=== PATIENT | female | born 1990 | race Caucasian/White ===

== ENCOUNTER 2017-01-14 03:44 | Inpatient (IN) | payer MEDICAID ==
[~2017-01-14] VITALS: Ht 147.3 cm; Wt 62.8 kg
[2017-01-14 04:05] VITALS: Ht 147.3 cm; Wt 62.8 kg
[2017-01-14 04:06] VITALS: BP 109/62; PULSE 79; RESP 18
[2017-01-14] MEDS ORDERED: PREN1TAB79 PO (04:08)
--- NOTE | 2017-01-14 05:45 | PN ---
Date/Time of Note Date/Time of Note DATE: 01/14/17 TIME: 05:35 OB Subjective Subjective Subjective 26 Year-old with SIUP at 37 4/7 presents with a chief complaint of UCS. She has been receiving her care with Dr. Will. She states good movement. She denies nausea, vomiting, shortness of breath, chest pain, and abdominal pain between contractions, headache, visual changes, vaginal bleeding or LOF. OB Objective Objective Objective General: Patient appears well, alert and oriented, NAD, appropriate mood and affect Heart: Regular rhythm and rate. No murmur. Normal S1, S2 Lung: clear to auscultation (bilateral) ABD: gravid, soft, non-tender. Back: No CVA tenderness (B/L) LE: No clubbing, cyanosis, edema, thigh or calf tenderness bilaterally FHT: 140 bpm , moderate variability with acceleration, no deceleration-category I Contractions: Q 3-5 min. SVE: 3/50/-3/ceph/intact membrane EFW: 7 1/2 lbs Pelvis adequate OB Assessment/Plan Other plan: 26 Year-old with SIUP at 37 4/7 in labor. - FHR: No sign of metabolic acidosis- Category I - Continious EFM, toco - Reactive NST - Repeat exam in 2hrs if there is cx changes will be admitted, if no cx changes and pt feels comfortable may discharge home with f/u with primary OB - Analgesia options with R/B/A discussed in detail with patient - Epidural per patient request - Please see the orders Admission, procedures, expectations, risks and possible complications have been discussed in detail with the patient. Risk of vaginal delivery including but not limited to bleeding, infection, cervical laceration, placental retention, injury to fetus, blood transfusion, blood transfusion related infection, risk of anesthesia, adhesion, cervical laceration, episiotomy/laceration, possible delivery with risk of bleeding, infection, injury to other organs ( bowel, bladder, ureter, vessels, nerves), injury to fetus, blood transfusion, blood transfusion related infection, risk of anesthesia, scar and hernia formation, needs for future , removal of uterus or any other indicated surgery discussed with the patient. She expressed understanding and repeats the risks. All of her questions were answered; all appropriate consents will be signed. EVANGELINA DONOVAN Jan 14, 2017 05:44
[2017-01-14] MEDS ORDERED: LACTATED RINGER'S 1,000 ML IV SCH (06:34)
[2017-01-14] MEDS ORDERED: OXYTOCIN 30 UNITS/LR 500 ML IV PRN (07:00)
[2017-01-14] MEDS ORDERED: MISOPROSTOL 200 MCG TAB PR PRN (07:00)
[2017-01-14] MEDS ORDERED: OXYTOCIN 30 UNITS/LR 500 ML IV SCH ×2 (07:00)
[2017-01-14] MEDS ORDERED: BUTORPHANOL 2 MG INJ IV PRN (07:00)
[2017-01-14] MEDS ORDERED: CARBOPROST 250 MCG INJ IM PRN (07:00)
[2017-01-14] MEDS ORDERED: AMPICILLIN 2 GM/NS (PMX) 100 ML IV ONE (07:00)
[2017-01-14] MEDS ORDERED: METHYLERGONOVINE 0.2 MG INJ IM PRN (07:00)
[2017-01-14] MEDS ORDERED: LACTATED RINGER'S 1,000 ML IV PRN (07:00)
[2017-01-14] MEDS ORDERED: LIDOCAINE 1% (MPF) 30 ML INJ INJ PRN (07:00)
[2017-01-14 08:14] LABS: BASOPHILS % 0.2 % (0.0-2.0); EOSINOPHILS # 0.1 10^3/ul (0.0-0.5); EOSINOPHILS % 0.6 % (0.0-7.0); HEMATOCRIT 38.8 % (37.0-47.0); HEMOGLOBIN 13.3 g/dl (12.0-16.0); LYMPHOCYTES # 1.7 10^3/ul (0.8-2.9); LYMPHOCYTES % 11.8 % (15.0-51.0); MEAN CORPUSCULAR HEMOGLOBIN 32.2 pg (29.0-33.0); MEAN CORPUSCULAR HGB CONC 34.4 g/dl (32.0-37.0); MEAN CORPUSCULAR VOLUME 93.5 fl (82.0-101.0); MEAN PLATELET VOLUME 7.2 fl (7.4-10.4); MONOCYTE # 0.7 10^3/ul (0.3-0.9); MONOCYTES % 5.2 % (0.0-11.0); NEUTROPHIL # 11.6 10^3/ul (1.6-7.5); NEUTROPHILS % 82.2 % (39.0-77.0); PLATELET COUNT 256 10^3/UL (140-440); RED BLOOD COUNT 4.15 10^6/ul (4.20-5.40); RED CELL DISTRIBUTION WIDTH 13.7 % (11.5-14.5); UNCORRECTED WBC 14.1 10^3/ul (4.8-10.8); WHITE BLOOD COUNT 14.1 10^3/ul (4.8-10.8)
[2017-01-14 08:20] LABS: CONDITION 1
[2017-01-14 08:35] LABS: INR 0.98
[2017-01-14 08:36] LABS: PARTIAL THROMBOPLASTIN TIME 26.8 Sec (25.0-35.0)
[2017-01-14] MEDS ORDERED: AMPICILLIN 1 GM/NS (PMX) 50 ML IV SCH (11:00)
--- NOTE | 2017-01-14 11:04 | HP ---
Date/Time of Note Date/Time of Note DATE: 01/14/17 TIME: 11:01 OB - History Hx of Present Free Text/Dictation history physical ,refer to DR TATE,S PROGRESS NOTE Past Family/Social History * Past Medical, Surgical, Family and Obstetric Histories reviewed from chart. OB Admission Exam Vital Signs Vital Signs Vital Signs Date Time Temp Pulse Resp B/P Pulse Ox O2 Delivery O2 Flow Rate FiO2 01/14/17 04:06 98.5 79 18 109/62 Room Air Last 72 hours Lab Results CBC & BMP 01/14/17 08:01 PAT REBOLLAR MD Jan 14, 2017 11:04
--- NOTE | 2017-01-14 11:07 | LDN ---
Date/Time of Note Date/Time of Note DATE: 01/14/17 TIME: 11:04 Delivery Summary Normal spontaneous vaginal delivery of a live baby boy from EMELIA position shoulders delivered without difficulty rest of the baby's body followed cord clamped after self pulsation placenta spontaneously expelled inspected complete no perineal laceration blood loss 250 cc Placenta Delivered: Spontaneously Meconium: none Perineum intact?: Yes Anesthesia type: Epidural Estimated blood loss: 250 Sponge & Needle done & correct: Yes All needle counts correct: Yes Any foreign bodies felt in the: No Problems: Infant Delivery Information Sex Infant Sex: male Apgars 1 Minute: 9 5 Minute: 9 Suctioning Nose & mouth suctioned at korey: Yes Delee suction performed: No Umbilical Cord Umbilical cord with: 3 Vessels Cord presentations: no nuchal cord Cord Blood was obtained: Yes PAT REBOLLAR MD Jan 14, 2017 11:07
--- NOTE | 2017-01-14 12:43 | DELSUM ---
Delivery Summary A-C Datetime Report Generated by CPN: 01/14/2017 12:42 DELIVERY PERSONNEL Rate Clerk: Anjali Gonsalvesa MATERNAL INFORMATION Delivery Anesthesia: None Medications in Delivery: OXYTOCIN IN 30MU IN 500ML OF lR Estimated Blood Loss (ml): 250 Placenta Cultured: No Maternal Complications: None LABOR SUMMARY EDC: 01/31/2017 00:00 No. Babies in Womb: 1 Attempted: No Labor Anesthesia: None LABOR INFORMATION Reason for Induction: Not Applicable Onset of Labor: 01/13/2017 03:00 Complete Dilatation: 01/14/2017 10:37 Oxytocin: N/A Group B Beta Strep: Negative Group B Beta Strep: Done, Result Unknown Antibiotics # of Doses: AMPICILLIN Antibiotics Time of Last Dose: 0800 Steroids Given: None Reason Steroids Not Administered: Not Applicable MEMBRANES Membranes Rupture Method: Artificial Rupture of Membranes: 01/14/2017 09:52 Length of Rupture (hr): 1.05 Amniotic Fluid Color: Clear Amniotic Fluid Amount: Moderate Amniotic Fluid Odor: None STAGES OF LABOR Stage 1 hr: 31 Stage 1 min: 37 Stage 2 hr: 0 Stage 2 min: 18 Stage 3 hr: 0 Stage 3 min: 1 Total Time in Labor hr: 31 Total Time in Labor min: 56 VAGINAL DELIVERY Episiotomy: None Laceration Extension: First Degree Laceration Type: None Laceration Repair: Not Applicable Initial Vag Sponge Count: 15 Final Vag Sponge Count: 15 Initial Vag Sharps Count: 1 Final Vag Sharps Count: 1 Sponge Count Correct: Yes; Vaginal Sweep Performed Sharps Count Correct: Yes BABY A INFORMATION Infant Delivery Date/Time: 01/14/2017 10:55 Method of Delivery: Vaginal Method of Delivery: Vaginal Born in Route : No : N/A Forceps: N/A Vacuum Extraction: N/A Shoulder Dystocia : N/A SHOULDER DYSTOCIA BABY A Infant Delivery Date/Time: 01/14/2017 10:55 PRESENTATION/POSITION BABY A Presentation: Cephalic Presentation: Cephalic Cephalic Presentation: Vertex Vertex Position: Left Occipital Anterior Breech Presentation: N/A PLACENTA INFORMATION BABY A Placenta Delivery Time : 01/14/2017 10:56 Placenta Method of Delivery: Spontaneous Placenta Method of Delivery: Spontaneous Placenta Status: Delivered SCORES BABY A Heart Rate 1 min: >100 bpm Resp Effort 1 min: Good Cry Reflex Irritability 1 min: Cough/Sneeze/Pulls Away Muscle Tone 1 min: Active Motion Color 1 min: Body Butters, Extremit Blue Resuscitation Effort 1 min: Tactile Stimulation SCORE 1 MIN: 9 Heart Rate 5 min: >100 bpm Resp Effort 5 min: Good Cry Reflex Irritability 5 min: Cough/Sneeze/Pulls Away Muscle Tone 5 min: Active Motion Color 5 min: Body Butters, Extremit Blue Resuscitation Effort 5 min: Tactile Stimulation SCORE 5 MIN: 9 INFANT INFORMATION BABY A Gestational Age at Delivery: 37.4 Gestational Status: Early Term- 37- 38.6 Weeks Infant Outcome : Liveborn Condition : Stable Sex: Male Infant Sex: Male IDENTIFICATION/MEDS BABY A ID Band Number: [id number] ID Band Location: Right Leg; Left Leg Sensor Applied: Yes Sensor Number: [id number] Sensor Location : Cord Clamp Vitamin K Given : Aquamephyton 1 mg IM; Left Thigh Erythromycin Given: Given Both Eyes WEIGHT/LENGTH BABY A Birthweight (gm): 2815 Weight (lb): 6 Infant Weight (oz): 3 Infant Length (in): 19.50 Infant Length (cm): 49.53 CORD INFORMATION BABY A No. Cord Vessels: 3 Nuchal Cord : N/A Cord Blood Taken: Yes Suction: Nose; Pharynx ASSESSMENT BABY A Infant Complications: None Physical Findings at Delivery: Caput Succedaneum Infant Respirations: Appears Normal Acute Care Physician/ALS Called : No Infant Care By: JOSE SHARP Transferred To: Remains with Mother
[2017-01-14 12:50] VITALS: BP 112/52; PULSE 64; RESP 18
[2017-01-14] MEDS ORDERED: ONDANSETRON 4 MG INJ IV PRN (13:30)
[2017-01-14] MEDS ORDERED: ACETAMINOPHEN 325 MG TAB PO PRN (13:30)
[2017-01-14] MEDS ORDERED: DIBUCAINE 1% 30 GM OINT PR PRN (13:30)
[2017-01-14] MEDS ORDERED: OXYCODONE/ASPIRIN (4.88/325) TAB PO PRN ×2 (13:30)
[2017-01-14] MEDS ORDERED: LANOLIN 7 GM TUBE TOP PRN (13:30)
[2017-01-14] MEDS ORDERED: BENZOCAINE 20% 56 ML SPRAY TOP PRN (13:30)
[2017-01-14] MEDS ORDERED: WITCH HAZEL/GLYCERIN PAD PR PRN (13:30)
[2017-01-14] MEDS ORDERED: ACETAMINOPHEN/CODEINE #3 TAB PO PRN ×2 (13:30)
[2017-01-14] MEDS: OXYTOCIN 30 UNITS/LR 500 ML IV SCH ×2 (13:42→17:33)
[2017-01-14 15:59] VITALS: BP 106/59; PULSE 66; RESP 18
[2017-01-14] MEDS: IBUPROFEN 600 MG TAB PO SCH ×2 (17:16→23:31)
[2017-01-14 20:15] VITALS: BP 100/60; PULSE 65; RESP 19
[2017-01-14] MEDS: SENNA/DOCUSATE NA (8.6MG/50MG) TAB PO SCH (20:40)
[2017-01-15 04:00] VITALS: BP 101/59; PULSE 73; RESP 19
[2017-01-15] MEDS: IBUPROFEN 600 MG TAB PO SCH ×3 (05:24→17:41)
[2017-01-15 07:30] VITALS: BP 102/52; PULSE 69; RESP 18
[2017-01-15 07:36] LABS: BASOPHILS % 0.3 % (0.0-2.0); EOSINOPHILS # 0.4 10^3/ul (0.0-0.5); EOSINOPHILS % 3.5 % (0.0-7.0); HEMATOCRIT 34.1 % (37.0-47.0); HEMOGLOBIN 11.8 g/dl (12.0-16.0); LYMPHOCYTES % 17.7 % (15.0-51.0); MEAN CORPUSCULAR HEMOGLOBIN 32.6 pg (29.0-33.0); MEAN CORPUSCULAR HGB CONC 34.5 g/dl (32.0-37.0); MEAN CORPUSCULAR VOLUME 94.6 fl (82.0-101.0); MEAN PLATELET VOLUME 7.4 fl (7.4-10.4); MONOCYTE # 0.8 10^3/ul (0.3-0.9); NEUTROPHILS % 71.5 % (39.0-77.0); PLATELET COUNT 226 10^3/UL (140-440); RED BLOOD COUNT 3.61 10^6/ul (4.20-5.40); RED CELL DISTRIBUTION WIDTH 13.6 % (11.5-14.5); UNCORRECTED WBC 11.2 10^3/ul (4.8-10.8); WHITE BLOOD COUNT 11.2 10^3/ul (4.8-10.8)
[2017-01-15 07:46] LABS: CONDITION 1
[2017-01-15] MEDS ORDERED: INFLUENZA VIRUS VACCINE 0.5 ML (DISPENSING) IM* ONE (09:00)
--- NOTE | 2017-01-15 09:05 | PN ---
Date/Time of Note Date/Time of Note DATE: 01/15/17 TIME: 09:03 OB Subjective Subjective Subjective Post day 1 Afebrile vital sign stable, abdomen soft uterus firm lochia normal extremity normal ambulating when necessary plan of a.m. discharge discussed PAT REBOLLAR MD Jan 15, 2017 09:04
[2017-01-15] MEDS: SENNA/DOCUSATE NA (8.6MG/50MG) TAB PO SCH ×2 (09:20→20:50)
[2017-01-15 16:08] VITALS: BP 100/53; PULSE 61; RESP 16
[2017-01-15 19:30] VITALS: BP 101/64; PULSE 62; RESP 20
[2017-01-16] MEDS: IBUPROFEN 600 MG TAB PO SCH ×3 (00:15→12:09)
[2017-01-16 04:00] VITALS: BP 100/60; PULSE 67; RESP 19
[2017-01-16 08:22] VITALS: BP 101/55; PULSE 76; RESP 18
[2017-01-16] MEDS: SENNA/DOCUSATE NA (8.6MG/50MG) TAB PO SCH (08:36)
[2017-01-16] MEDS ORDERED: MEASLES,MUMPS,RUBELLA VACCINE INJ SC* ONE (09:00)
--- NOTE | 2017-01-16 10:30 | DS ---
Date/Time of Note Date/Time of Note DATE: 01/16/17 TIME: 10:25 Obstetrical Discharge Record Final Diagnosis Final Diagnosis: Term delivered Condition on Discharge Physical Assessment Last Vitals: Post day 2 Current Medications Medications (Trade) Dose Ordered Sig/Shani Route PRN Reason Start Time Stop Time Status Last Admin Dose Admin Lactated Ringer's 1,000 ml @ 125 mls/hr Q8H IV 01/14/17 06:34 01/14/17 13:15 DC 01/14/17 07:54 Ampicillin 100 ml @ 100 mls/hr ONCE ONCE IV 01/14/17 07:00 01/14/17 07:59 DC 01/14/17 07:55 Ampicillin (Ampicillin 1 Gm/ NS (Pmx)) 50 ml @ 100 mls/hr Q4H IV 01/14/17 11:00 01/14/17 13:15 DC Butorphanol Tartrate (Stadol) 2 mg Q2H PRN IV PAIN 01/14/17 07:00 01/14/17 13:15 DC Lidocaine 30 ml 30 ml ONCE PRN INJ EPISIOTOMY/TEARING 01/14/17 07:00 01/14/17 13:15 DC Oxytocin/Lactated Ringer's 500 ml @ 125 mls/hr ONCE -MAY REPEAT X1 IV 01/14/17 07:00 01/14/17 13:15 DC 01/14/17 11:14 Oxytocin/Lactated Ringer's 500 ml @ 125 mls/hr ONCE IV 01/14/17 07:00 01/14/17 13:15 DC 01/14/17 11:50 Lactated Ringer's 1,000 ml @ 2,000 mls/hr Q30M PRN IV PRE-EPIDURAL BOLUS 01/14/17 07:00 01/14/17 13:15 DC Oxytocin/Lactated Ringer's 500 ml @ 0 mls/hr ONCE PRN IV For Hemorrhage Management 01/14/17 07:00 01/14/17 13:15 DC Methylergonovine Maleate (Methergine) 0.2 mg ONCE PRN IM VAGINAL BLEEDING 01/14/17 07:00 01/14/17 13:15 DC Carboprost Tromethamine (Hemabate) 250 mcg ONCE PRN IM VAGINAL BLEEDING 01/14/17 07:00 01/14/17 13:15 DC Misoprostol 1000 mcg 1,000 mcg ONCE PRN SC VAGINAL BLEEDING 01/14/17 07:00 01/14/17 13:15 DC Oxytocin/Lactated Ringer's 500 ml @ 125 mls/hr Q4H IV 01/14/17 13:12 01/14/17 21:11 DC 01/14/17 17:33 Ibuprofen (Motrin) 600 mg Q6 PO 01/14/17 18:00 01/16/17 05:39 Acetaminophen (Tylenol Tab) 650 mg Q4H PRN PO PAIN LEVEL 1-5 01/14/17 13:30 Acetaminophen/ Codeine Phosphate (Tylenol No.3) 1 tab Q4H PRN PO PAIN LEVEL 1-5 01/14/17 13:30 Acetaminophen/ Codeine Phosphate (Tylenol No.3) 2 tab Q4H PRN PO PAIN LEVEL 6-10 01/14/17 13:30 Oxycodone/Aspirin (Percodan) 1 tab Q3H PRN PO PAIN LEVEL 1-5 01/14/17 13:30 Oxycodone/Aspirin (Percodan) 2 tab Q3H PRN PO PAIN LEVEL 6-10 01/14/17 13:30 Ondansetron HCl (Zofran Inj) 4 mg Q6H PRN IV NAUSEA AND/OR VOMITING 01/14/17 13:30 Senna/Docusate Sodium (Senokot-S) 1 tab BID PO 01/14/17 21:00 01/16/17 08:36 Witch Nubia/ Glycerin (Tucks Pads) 1 pad BEDSIDE MEDICATION PRN SC HEMORRHOID/EPISIOTMY PAIN 01/14/17 13:30 Benzocaine (Dermoplast Traver) 1 spray BEDSIDE MEDICATION PRN TOP HEMORRHOID/EPISIOTMY PAIN 01/14/17 13:30 Dibucaine (Nupercainal) 1 applic BEDSIDE MEDICATION PRN SC HEMORRHOID/EPISIOTMY PAIN 01/14/17 13:30 Lanolin (Mim-M-Qjreja) 1 applic BEDSIDE MEDICATION PRN TOP BEDSIDE FOR SYLVESTER TO NIPPLES 01/14/17 13:30 01/14/17 13:44 Measles/Mumps/ Rubella Vaccine Live (Mmr Ii Vaccine) 0.5 ml ONCE ONCE SC* 01/16/17 09:00 01/16/17 09:01 DC Influenza Virus Vaccine (Fluzone) 0.5 ml ONCE ONCE IM* 01/15/17 09:00 01/15/17 09:01 DC 01/15/17 09:51 Patient is doing well, Ambulatory She is afebrile Abdomen is soft , Fundus is firm Moderate amount of lochia Breasts are soft, Nipples are intact No calf tenderness. Perineum is healing well. Breast feeding the new born. Disposition: Discharged home to be followed in the clinic. Voiding: Yes Bowel Movement: Yes Breast: Soft, non-tender Fundus: Firm Calf Tenderness: No Patient Condition: Good MARJORIE ORTIZ MD Jan 16, 2017 10:30
== END 2017-01-16 14:00 | disposition home or self-care (01) | DRG 775 ==
LOC: OBT 03:44 → L-D 03:44 → OBT 06:35 → L-D 06:35 → PP1 12:47
PROVIDERS: ADMIT Obstetrics & Gynecology; ATTEND Obstetrics & Gynecology
PROC: 10E0XZZ Delivery of Products of Conception, External Approach (ICD-10-PCS; principal; 2017-01-14)
DX: O80 Encounter for full-term uncomplicated delivery (principal); Z37.0 Single live birth; Z3A.37 37 weeks gestation of pregnancy
CPT/HCPCS: 85025; 85610; 85730; 86592; 86900; 86901; 87340; 90686; G0463; J0290; J2590; J7120